=== PATIENT | male | born 1950 | race Caucasian/White ===

== ENCOUNTER 2016-12-05 14:42 | Observation (INO) ==
[2016-12-05] MEDS ORDERED: Ondansetron 4 MG/2 ML VIAL IVP ONE ×2 (15:52→16:53)
[2016-12-05] MEDS ORDERED: *HR* HYDROmorphone (PF) 1 MG/ML SYRINGE IVP ONE (15:52)
[2016-12-05 16:36] LABS: Prothrombin Time 11.2 Seconds (9.4-12.1)
[2016-12-05 16:37] LABS: Basophils % 0.3 %; Eosinophils % 0.2 %; Hematocrit 44.9 % (37.5-50.1); Immature Granulocytes % 0.5 % (0-4); Lymphocytes # 1.1 K/mcL (0.6-4.6); Lymphocytes % 9.6 %; Mean Corpuscular HGB Conc 33.4 g/dL (31.6-35.5); Mean Corpuscular Hemoglobin 30.5 pg (28.0-33.3); Mean Corpuscular Volume 91.4 fL (83.0-100.0); Mean Platelet Volume 9.6 fL (9.4-12.4); Monocytes # 0.6 K/mcL (0.0-1.3); Monocytes % 5.2 %; Platelet Count 204 K/mcL (140-400); Red Blood Count 4.91 M/mcL (4.19-5.50); Red Cell Distribution Width 12.7 % (11.5-14.5); Segmented Neutrophils % 84.2 %
[2016-12-05 16:39] LABS: Activated Partial Thrombo Time 27.6 Seconds (26.0-36.0)
[2016-12-05 16:45] LABS: BUN/Creatinine Ratio 10 (6-26); Blood Urea Nitrogen 8 mg/dL (8-26); Calcium 9.2 mg/dL (8.6-10.8); Carbon Dioxide 26 mEq/L (19-29); Chloride 93 mEq/L (98-109); Glucose 205 mg/dL (70-99); Osmolality,Calculated 270 (280-300); Potassium 4.5 mEq/L (3.5-4.5); Sodium 128 mEq/L (136-145); eGFR For African Americans > 60 (> 60); eGFR For Non-African Americans > 60 (> 60)
[2016-12-05] MEDS ORDERED: 0.9 % Sodium Chloride 1,000 ML IVC ONE (16:55)
--- NOTE | 2016-12-05 17:59 | Emergency Department Note ---
Disposition Clinical Impression: Head ache, Generalized weakness, Malaise and fatigue, Nausea, Hyponatremia Disposition: Admitted As Inpatient Condition: Fair General Adult HPI - General Chief complaint: ED Dizziness Stated complaint: nausea, FERNANDEZ Time Seen by Provider: 12/05/16 15:08 Source: patient, family Mode of arrival: ambulatory Limitations: no limitations Nursing Notes Reviewed: Yes Vital Signs Reviewed: Yes - History of Present Illness HPI Narrative: Patient is a 66-year-old white male who presents to the emergency room today complaining of a gradual in onset right frontal headache that began late last evening. Patient reports to me that he was just sitting outside enjoying the nice weather and started to have just a dull gradual ache in his right forehead. Patient states that he had been feeling fine during the day prior to the onset of a headache. Patient said he is not someone who typically gets headaches so he took some Motrin and the pain was stable but did not worsen throughout the evening. Patient denies any other associated symptoms with the pain, no further diplopia or visual changes, no slurred speech no focal deficits , no neck pain, no chest pain shortness of breath, no nausea vomiting, no diaphoresis. Patient stated throughout the night he had trouble sleeping and every time he laid on his right side seems to exacerbate his right frontal headache pain. Patient states he rolled over and laid on his left side pain would subside and he would be able to fall sleep and rest comfortably. Patient denies any history of falls or trauma. Patient states upon waking this morning he was still having a right frontal headache, throbbing in nature, 6 out of 10 in severity and took 2 baby aspirin this morning. Patient states the pain began make him feel nauseated but patient denies any vomiting and no other associated symptoms. Headache was not preceded by any upper respiratory symptoms no sinusitis no sore throat or cough. Patient denies any other associated symptoms. Patient began to complain of nausea and not feeling well his brought him in here for evaluation. Pain Scale: 6 - Related Data Home Medications Medication Instructions Recorded Confirmed Aclidinium [place] [Tudorza 400 mcg IH BID 12/05/16 12/05/16 Pressair] Albuterol Sulfate [Albuterol 2 puff IH Q4H PRN 12/05/16 12/05/16 Inhaler] Aspirin Enteric Coated [Aspirin EC] 81 mg PO DAILY 12/05/16 12/05/16 Fluticasone/Salmeterol [Advair Hfa 2 puff IH BID 12/05/16 12/05/16 115-21 Mcg Inhaler] Gabapentin [Neurontin] 300 mg PO HS 12/05/16 12/05/16 Metformin HCl [Glucophage] 1,000 mg PO BID 12/05/16 12/05/16 Multivitamin [Multi-Day Vitamins] 1 each PO DAILY 12/05/16 12/05/16 Simvastatin [Zocor] 20 mg PO HS 12/05/16 12/05/16 Allergies Allergy/AdvReac Type Severity Reaction Status Date / Time acetaminophen [From Percocet] Allergy See Verified 12/05/16 14:51 Comments Oxycodone [From Percocet] Allergy See Verified 12/05/16 14:51 Comments All systems ED: reviewed and negative except as stated. Constitutional: Reports: as per HPI. Denies: fever, chills, weakness Eyes: Reports: as per HPI. Denies: vision change ENT ED: Reports: as per HPI. Denies: ear pain, congestion, dysphagia Cardiovascular: Reports: as per HPI. Denies: chest pain, palpitations, dyspnea on exertion, syncope Respiratory: Reports: as per HPI. Denies: cough, dyspnea Gastrointestinal: Reports: as per HPI, nausea. Denies: abdominal pain, vomiting , diarrhea Genitourinary: Reports: as per HPI. Denies: urgency, dysuria Musculoskeletal: Reports: as per HPI, neck pain. Denies: back pain, arthralgia , myalgia Integumentary: Reports: as per HPI. Denies: rash Neurological: Reports: as per HPI, headache. Denies: weakness, numbness, paresthesias, confusion, abnormal gait, vertigo Psychiatric: Reports: as per HPI. Denies: anxiety, depression Endocrine: Reports: as per HPI. Denies: fatigue Hematological/Lymphatic: Reports: as per HPI. Denies: easy bleeding, easy bruising Allergic/Immunologic: Reports: as per HPI Past Medical History - Past Medical History Medical history: Reports: COPD, diabetes, hyperlipidemia, hypertension Psychiatric history: Reports: no psych history - Social History Smoking Status: Current every day smoker Alcohol use: Reports: occasionally Drug use: Reports: none Physical Exam - General Limitations: no limitations General appearance: alert, in no apparent distress - Head Head exam: atraumatic, normocephalic, normal inspection - Eye Eye exam: Present: normal appearance, PERRL, EOMI, other (No photophobia) - ENT ENT exam: normal exam, normal oropharynx, mucous membranes moist, TM's normal bilaterally, other (Mastoids nontender to palpation no erythema) - Neck Neck exam: Present: normal inspection, full ROM. Absent: meningismus, lymphadenopathy - Chest Chest inspection: Present: normal inspection, symmetric chest wall rise. Absent : tenderness - Respiratory Respiratory exam: Present: normal lung sounds bilaterally. Absent: respiratory distress, wheezes - Cardiovascular Cardiovascular exam: Present: regular rate, normal rhythm, normal heart sounds - Abdominal Exam Abdominal exam: Present: soft, Non-Tender, normal bowel sounds - Extremities Exam Extremities exam: Present: normal inspection, normal capillary refill. Absent: tenderness, pedal edema - Back Exam Back exam: Present: normal inspection, full ROM - Neurological Exam Neurological exam: Present: alert, oriented X3, CN II-XII intact, normal gait, reflexes normal, other (No focal neurologic deficits appreciated on exam). Absent: motor sensory deficit - Psychiatric Psychiatric exam: Present: normal affect, normal mood Course Vital Signs Temperature 98.8 F 12/05/16 14:47 Pulse Rate 76 12/05/16 14:47 Respiratory Rate 18 12/05/16 14:47 Blood Pressure 139/78 12/05/16 14:47 O2 Sat by Pulse Oximetry 90 12/05/16 14:47 Temperature 98.4 F 12/06/16 11:08 Pulse Rate 68 12/06/16 11:08 Respiratory Rate 18 12/06/16 11:08 Blood Pressure 131/66 12/06/16 11:08 O2 Sat by Pulse Oximetry 91 12/06/16 11:08 Oxygen Delivery Oxygen Delivery Nasal Cannula Medical Decision Making - [facility] Narrative Medical decision making narrative: Pt is a 66 yo wm, who presented to the ER with c/o R frontal FERNANDEZ, nausea, and "just not feeling well". Pt with no visual changes, no photophobia, no temporal TTP, and no focal neuro deficits. Pt with no prior hx of FERNANDEZ's. Pt with stable VS in ED. Pt with grad in onset FERNANDEZ, not worst FERNANDEZ of his life, mild and throbbing to R forehead. No assocd URI/ST/cough/sinus pain or press. No vomiting /diarrhea. No abd pain/cramping. No F/C. Pt appears tired but in NAD. Pt on monitor/pulse ox, EKG performed which was wnl, PCXR, and CT head performed which was wnl, labs show mild hyperglycemia without acidosis, and hyponatremia which is new for this pt. Pt receive single dose IV meds for FERNANDEZ, which resolved following medical voucher clerk, and remained pain free for remainder of ED course. Hydrated pt with IVF, which also helped him to "feel better". Stable neruo exam over time. Mild elevation in ESR , but not to the level typical for vasculitis. Pt with no TTP at R temporal area and no visual changes. Pt afebrile with no ill contacts at home. Pt with failure to thrive, gen weakness, dec PO intake due to ongoing nausea, which we treated multiple times in ED. Also newly found hyponatremia. Admitted pt for further evaluation and treatment, pt accepted by hospitalist. - Medical Records Medical records reviewed: Yes I reviewed the patient's medical records. - Lab Data Lab results reviewed: Yes I reviewed the patient's lab results. Result diagrams: 12/06/16 06:21 12/06/16 06:21 Lab Results 12/05/16 12/05/16 12/05/16 Range/Units 16:09 16:09 16:09 WBC 11.8 H (4.3-11.1) K/mcL RBC 4.91 (4.19-5.50) M/mcL Hgb 15.0 (12.9-16.9) g/dL Hct 44.9 (37.5-50.1) % MCV 91.4 (83.0-100.0) fL MCH 30.5 (28.0-33.3) pg MCHC 33.4 (31.6-35.5) g/dL RDW 12.7 (11.5-14.5) % Plt Count 204 (140-400) K/mcL MPV 9.6 (9.4-12.4) fL Immature Gran % 0.5 (0-4) % Seg Neutrophils % 84.2 % Lymphocytes % 9.6 % Monocytes % 5.2 % Eosinophils % 0.2 % Basophils % 0.3 % Neutrophils # 10.0 H (1.6-8.9) K/mcL Lymphocytes # 1.1 (0.6-4.6) K/mcL Monocytes # 0.6 (0.0-1.3) K/mcL Eosinophils # 0.0 (0.0-0.6) K/mcL Basophils # 0.0 (0.0-0.2) K/mcL ESR (0-10) mm/hr PT 11.2 (9.4-12.1) Seconds INR 1.0 APTT 27.6 (26.0-36.0) Seconds Sodium 128 L (136-145) mEq/L Potassium 4.5 (3.5-4.5) mEq/L Chloride 93 L (98-109) mEq/L Carbon Dioxide 26 (19-29) mEq/L BUN 8 (8-26) mg/dL Creatinine 0.81 (0.72-1.25) mg/dL Est GFR ( Amer) > 60 (> 60) Est GFR (Non-Af Amer) > 60 (> 60) BUN/Creatinine Ratio 10 (6-26) Glucose 205 H (70-99) mg/dL Calculated Osmolality 270 L (280-300) Calcium 9.2 (8.6-10.8) mg/dL Total Bilirubin 0.5 (0.2-1.2) mg/dL Direct Bilirubin 0.2 (0.0-0.5) mg/dL Indirect Bilirubin 0.3 (0.0-1.2) mg/dL AST 18 (5-34) Units/L ALT 24 (0-55) Units/L Alkaline Phosphatase 85 (38-126) Units/L Troponin I (0-0.03) ng/mL Serum Total Protein 7.7 (6.0-8.3) g/dL Albumin 3.5 (3.5-5.0) g/dL Globulin 4.2 H (2.4-3.5) g/dL Albumin/Globulin Ratio 0.8 L (1.1-2.2) 12/05/16 12/05/16 Range/Units 16:09 16:09 WBC (4.3-11.1) K/mcL RBC (4.19-5.50) M/mcL Hgb (12.9-16.9) g/dL Hct (37.5-50.1) % MCV (83.0-100.0) fL MCH (28.0-33.3) pg MCHC (31.6-35.5) g/dL RDW (11.5-14.5) % Plt Count (140-400) K/mcL MPV (9.4-12.4) fL Immature Gran % (0-4) % Seg Neutrophils % % Lymphocytes % % Monocytes % % Eosinophils % % Basophils % % Neutrophils # (1.6-8.9) K/mcL Lymphocytes # (0.6-4.6) K/mcL Monocytes # (0.0-1.3) K/mcL Eosinophils # (0.0-0.6) K/mcL Basophils # (0.0-0.2) K/mcL ESR 45 H (0-10) mm/hr PT (9.4-12.1) Seconds INR APTT (26.0-36.0) Seconds Sodium (136-145) mEq/L Potassium (3.5-4.5) mEq/L Chloride (98-109) mEq/L Carbon Dioxide (19-29) mEq/L BUN (8-26) mg/dL Creatinine (0.72-1.25) mg/dL Est GFR ( Amer) (> 60) Est GFR (Non-Af Amer) (> 60) BUN/Creatinine Ratio (6-26) Glucose (70-99) mg/dL Calculated Osmolality (280-300) Calcium (8.6-10.8) mg/dL Total Bilirubin (0.2-1.2) mg/dL Direct Bilirubin (0.0-0.5) mg/dL Indirect Bilirubin (0.0-1.2) mg/dL AST (5-34) Units/L ALT (0-55) Units/L Alkaline Phosphatase (38-126) Units/L Troponin I 0.00 (0-0.03) ng/mL Serum Total Protein (6.0-8.3) g/dL Albumin (3.5-5.0) g/dL Globulin (2.4-3.5) g/dL Albumin/Globulin Ratio (1.1-2.2) - Radiology Data Radiology results reviewed: Yes I reviewed the patient's radiology results. - EKG Data EKG #1 EKG results narrative: EKG was interpreted by myself without benefit of for cardiology interpretation showing a normal sinus rhythm at [address] or T-wave changes are appreciated this is unchanged from prior EKG from 11/01/2011.
[2016-12-05 18:43] LABS: Alanine Aminotransferase 24 Units/L (0-55); Albumin 3.5 g/dL (3.5-5.0); Albumin/Globulin Ratio 0.8 (1.1-2.2); Alkaline Phosphatase 85 Units/L (38-126); Aspartate Amino Transferase 18 Units/L (5-34); Bilirubin,Direct 0.2 mg/dL (0.0-0.5); Bilirubin,Indirect 0.3 mg/dL (0.0-1.2); Bilirubin,Total 0.5 mg/dL (0.2-1.2); Globulin 4.2 g/dL (2.4-3.5); Total Protein 7.7 g/dL (6.0-8.3)
[2016-12-05] MEDS ORDERED: Naloxone 0.4 MG/ML INJ IVP PRN (21:20)
[2016-12-05] MEDS ORDERED: *HR* Promethazine 25 MG/ML VIAL IVP PRN (21:20)
[2016-12-05] MEDS ORDERED: *HR* Dextrose 50 % in Water (Syg) 50 ML SYRINGE IVP PRN (21:20)
[2016-12-05] MEDS ORDERED: D5% in Water 1,000 ML IVC PRN (21:20)
[2016-12-05] MEDS ORDERED: Dextrose Gel 15 GM PO PRN ×2 (21:20)
[2016-12-05] MEDS ORDERED: *HR* LORazepam 2 MG/ML VIAL IVP PRN ×3 (21:48)
[2016-12-05] MEDS: Ipratropium/Albuterol Neb 3 ML IH PRN (21:52)
[2016-12-05] MEDS: Budesonide/Formoterol 160/4.5 MDI IH SCH (21:52)
[2016-12-05] MEDS ORDERED: Acetaminophen 325 MG TABLET PO PRN (22:06)
[2016-12-05] MEDS ORDERED: Acetaminophen/Butalbital/CaffeineTABLET PO PRN (22:06)
[2016-12-05] MEDS ORDERED: 0.9 % Sodium Chloride 1,000 ML IVC SCH (22:15)
--- NOTE | 2016-12-05 22:15 | Internal Med History&Physical ---
Date of Encounter: 12/05/16 Time of Encounter: 22:07 Assessment and Plan (1) Head ache Current visit: Yes Status: Acute Tension type versus migraine. No concerning symptoms including rigidity, fever , focal neurologic findings. Head CT was negative. Will fluid hydrate and treat with acetaminophen and Fioricet. Patient may benefit from an neurology outpatient follow-up. Qualifiers: Headache type: unspecified Headache chronicity pattern: acute headache Intractability: not intractable Qualified Code(s): R51 - Headache (2) Hyponatremia Current visit: Yes Status: Acute Mild, chronic. Sodium was 128 on presentation, records reviewed shows that his baseline appears to be in the low 130s. No acute neurologic deficits. Likely related to chronic alcohol use. Will fluid hydrate and recheck BMP in the morning. (3) COPD (chronic obstructive pulmonary disease) Current visit: Yes Status: Acute Stable. No evidence of exacerbation. DuoNeb every 4 when necessary. Symbicort. Qualifiers: COPD type: unspecified COPD Qualified Code(s): J44.9 - Chronic obstructive pulmonary disease, unspecified (4) Type 2 diabetes mellitus Current visit: Yes Status: Acute Blood sugar elevated on presentation. We will hold metformin. We will institute sliding scale insulin. Continue to monitor. Patient continues to smoke. Discussed smoking cessation for 10 minutes with the patient. He is not interested in quitting at this time but will try to cut back. Will order nicotine patch. Qualifiers: Diabetes mellitus complication status: with hyperglycemia Diabetes mellitus penitentiary insulin use: without penitentiary use Qualified Code(s): E11.65 - Type 2 diabetes mellitus with hyperglycemia (5) Chronic alcohol use Current visit: Yes Status: Acute Patient reports 6-12 beers daily. He reports drinking 12 beers yesterday and one beer this morning. Patient has never had withdrawal symptoms. Will place on CIWA protocol. We will give thiamine and folate. Discussed alcohol cessation with the patient he states he will try to cut back. (6) DVT prophylaxis Current visit: Yes Status: Acute EPCDs Internal Medicine - H&P: HPI Chief complaint: Headache Admitted From: Emergency Dept Plans for Post Hospital Care: Home History of present illness: Mr. Escoto is a 66 year old male with history of COPD, DM2 presents with a headache. Patient states this started last night suddenly. He describes it as a pressure behind his right eye that wraps around the right side of his head. He states he has never had anything like this before. He reports associated nausea. He states he took Aleve last night and aspirin today that did not help. He did say he had a temperature of 99.2 today as well. He also reports shortness of breath that is at baseline and unchanged from his normal shortness of breath related to COPD. He denies chills, vomiting, diarrhea, chest pain, dysuria, weakness, photophobia, phonophobia. Past Med Surg Social Fam HX - Past Medical History Medical history: COPD, diabetes, hyperlipidemia, hypertension Psychiatric history: no psych history - Past Surgical History Surgical History: cataract - Social History Smoking Status: Current every day smoker Packs per day: 2 Smokeless Tobacco Status: No Alcohol use: occasionally Drug use: none - Family History Mother Living Status: Age at : 92 Cause of : cancer Father Living Status: Age at : 68 Cause of : [place] [facility] - H&P: Meds Aclidinium [place] [Tudorza Pressair] 400 mcg IH BID 12/05/16 [History] Albuterol Sulfate [Albuterol Inhaler] 2 puff IH Q4H PRN 12/05/16 [History] Aspirin Enteric Coated [Aspirin EC] 81 mg PO DAILY 12/05/16 [History] Fluticasone/Salmeterol [Advair Hfa 115-21 Mcg Inhaler] 2 puff IH BID 12/05/16 [ History] Gabapentin [Neurontin] 300 mg PO HS 12/05/16 [History] Metformin HCl [Glucophage] 1,000 mg PO BID 12/05/16 [History] Multivitamin [Multi-Day Vitamins] 1 each PO DAILY 12/05/16 [History] Simvastatin [Zocor] 20 mg PO HS 12/05/16 [History] Allergies acetaminophen [From Percocet] Allergy (Verified 12/05/16 14:51) See Comments Oxycodone [From Percocet] Allergy (Verified 12/05/16 14:51) See Comments All Systems PM: A 10-system review of systems was performed and is negative for pertinent findings except as documented above in the HPI. - Constitutional Constitutional: fever(s), no chills, no weakness - EENT Eyes: no blurry vision, no change in vision, no diplopia, no loss of vision Ears: no decreased hearing, no ear pain Nose, mouth and throat: no sinus pain, no sinus pressure, no sore throat - Cardiovascular Cardiovascular ROS IM: dyspnea, no chest pain, no dyspnea on exertion, no edema , no lightheadedness, no syncope - Respiratory Respiratory: dyspnea, no cough, no hemoptysis, no dyspnea on exertion, no wheezing, no chest congestion, no excessive phlegm production, no change in phlegm color - Gastrointestinal Gastrointestinal: nausea, no abdominal pain, no diarrhea, no hematemesis, no hematochezia, no melena, no vomiting - Genitourinary Genitourinary ROS male: no dysuria, no hematuria - Musculoskeletal Musculoskeletal ROS IM: no neck pain, no numbness, no tingling - Integumentary Integumentary IM: no new lesions - Neurological Neurological ROS: headache(s), no abnormal gait, no abnormal hearing, no abnormal speech, no confusion, no disequilibrium, no dizziness, no focal weakness, no frequent falls, no numbness, no tingling, no weakness - Psychiatric Psychiatric: no anxiety, no depression - Endocrine Endocrine IM: no polydipsia, no polyuria - Hematologic/Lymphatic Hematologic/Lymphatic: no easy bleeding, no easy bruising - Constitutional Vitals: Temp Pulse Resp BP Pulse Ox 98.7 F 69 16 130/70 98 12/05/16 20:13 12/05/16 20:13 12/05/16 21:52 12/05/16 20:13 12/05/16 21:52 General appearance: Present: A&O X 3, pleasant, no acute distress Exam: Patient was sitting up in chair watching TV while in the room. - Head Head exam: Present: atraumatic, normal inspection, normocephalic - Eye Eye exam: Present: EOMI, PERRL - ENT ENT exam: Present: mucous membranes moist - Neck Neck exam general surgery: Present: full ROM, normal inspection, supple, trachea midline. Absent: tenderness, nuchal rigidity - Respiratory Respiratory exam: Absent: rales, respiratory distress, rhonchi, wheezes ( Occasional scattered), tachypnea - Cardiovascular Cardiovascular exam: Present: RRR. Absent: gallop, rubs, systolic murmur - GI/Abdominal GI/Abdominal exam: Present: normal bowel sounds, soft. Absent: distended, tenderness - Extremities Exam Extremities exam: Present: warm. Absent: pedal edema, tenderness - Neurological Exam Neurological exam: Present: alert, CN II-XII intact, oriented X3, reflexes normal, no focal deficits, strengths equal and symetr throughout. Absent: motor sensory deficit, facial droop, speech deficit - Psychiatric Psychiatric exam: Present: normal affect, normal mood - Skin Skin exam: Present: dry, intact, warm Internal Med - H&P Results - Labs CBC & Chem 7: 12/05/16 16:09 12/05/16 16:09
--- NOTE | 2016-12-05 23:05 | Event Note ---
Date of Encounter: 12/05/16 Time of Encounter: 22:30 66 year old male with h/o- HTN, DM, HL, COPD, chronic alcohol and tobacco abuse , was admitted with right-sided headache, sudden onset, moderate intensity. Patient evaluated along with resident and agree with resident note's history, assessment and plan. Patient is alert and oriented*3; no focal neurological deficits noted; chest- S1 , S2 heard; lungs are clear to auscultation B/L; Labs reviewed- very mild leukocytosis, serum Na- 128; Right hemicranial headache- atypical migraine, probable; will give PRN Tylenol and Fioricet for pain control; currently improved pain; CT head shows no acute abnormality; outpatient Neurology f/up if pain is recurrent; no indication for lumbar puncture/MRI brain at this time; Continue management of other comorbidities per Resident's note; Hyponatremia- possibly hypovolemic due to dehydration; baseline serum sodium noted to be low 130s; will give IV NS and monitor serum sodium;
[2016-12-06 06:46] LABS: Basophils % 0.2 %; Eosinophils # 0.1 K/mcL (0.0-0.6); Eosinophils % 0.9 %; Hematocrit 44.7 % (37.5-50.1); Immature Granulocytes % 0.5 % (0-4); Lymphocytes # 2.3 K/mcL (0.6-4.6); Lymphocytes % 23.6 %; Mean Corpuscular HGB Conc 33.6 g/dL (31.6-35.5); Mean Corpuscular Volume 92.4 fL (83.0-100.0); Mean Platelet Volume 9.3 fL (9.4-12.4); Monocytes # 0.9 K/mcL (0.0-1.3); Monocytes % 9.4 %; Neutrophils # 6.5 K/mcL (1.6-8.9); Platelet Count 184 K/mcL (140-400); Red Blood Count 4.84 M/mcL (4.19-5.50); Red Cell Distribution Width 12.9 % (11.5-14.5); Segmented Neutrophils % 65.4 %
[2016-12-06 07:23] LABS: BUN/Creatinine Ratio 9 (6-26); Blood Urea Nitrogen 7 mg/dL (8-26); Calcium 9.2 mg/dL (8.6-10.8); Carbon Dioxide 28 mEq/L (19-29); Chloride 100 mEq/L (98-109); Glucose 106 mg/dL (70-99); Osmolality,Calculated 278 (280-300); Potassium 4.4 mEq/L (3.5-4.5); Sodium 135 mEq/L (136-145); eGFR For African Americans > 60 (> 60); eGFR For Non-African Americans > 60 (> 60)
[2016-12-06] MEDS: Budesonide/Formoterol 160/4.5 MDI IH SCH (07:34)
[2016-12-06] MEDS: Ipratropium/Albuterol Neb 3 ML IH PRN (07:34)
[2016-12-06] MEDS: Insulin LISPRO 300 UNITS/3 ML VIAL SQ SCH ×2 (08:21→12:57)
[2016-12-06] MEDS ORDERED: Nicotine 21 MG PATCH.TD24 TD SCH (09:00)
[2016-12-06] MEDS ORDERED: Aspirin Enteric Coated 81 MG Tablet PO SCH (09:00)
[2016-12-06] MEDS ORDERED: Folic Acid 1 MG TABLET PO SCH (09:00)
[2016-12-06] MEDS ORDERED: Thiamine (B-1) 100 MG TABLET PO SCH (09:00)
[2016-12-06 11:09] VITALS: BP 131/66
--- NOTE | 2016-12-06 12:43 | Discharge Summary ---
Date of Encounter: 12/06/16 Time of Encounter: 10:00 - Discharge Diagnosis (1) Head ache Priority: Primary Status: Resolved Comments: Patient denied headache on day of discharge. Follow-up outpatient. (2) Heavy alcohol consumption Priority: Secondary Status: Chronic Comments: Patient stating he drinks "all day every day" and he refers to himself as an alcoholic. He states he drinks between 6 and 12 beers a day but is never gone through withdrawal. He states that today he was admitted was the first day he has gone without alcohol since he can remember. He was counseled and does not have a desire to decrease or stop drinking at this time. (3) Heavy tobacco smoker Priority: Secondary Status: Chronic Comments: Patient smokes 2 packs per day. He declines any counseling. (4) Hyponatremia Priority: Secondary Status: Chronic Comments: Acute on chronic. Improved with IV fluids. Also associated with hyperosmolality likely secondary to heavy alcohol abuse and poor diet. Patient was counseled but stated he was not getting change anything that he eats or drinks. (5) COPD (chronic obstructive pulmonary disease) Priority: Secondary Status: Chronic Comments: No acute exacerbation. Patient denied shortness of breath above his norm during this admission. Qualifiers: COPD type: unspecified COPD Qualified Code(s): J44.9 - Chronic obstructive pulmonary disease, unspecified (6) Type 2 diabetes mellitus Priority: Secondary Status: Chronic Comments: Relatively well-controlled at home with an A1c of 6.8%. Continue follow up outpatient Qualifiers: Diabetes mellitus complication status: with hyperglycemia Diabetes mellitus bed bug exterminator insulin use: without bed bug exterminator use Qualified Code(s): E11.65 - Type 2 diabetes mellitus with hyperglycemia (7) DVT prophylaxis Priority: Primary Status: Acute Comments: EPCD's ordered; Observation patient. Up ad wyatt. - Discharge Medications Home Medications: Aclidinium Spreckels [Tudorza Pressair] 400 mcg IH BID 12/05/16 [History] Albuterol Sulfate [Albuterol Inhaler] 2 puff IH Q4H PRN 12/05/16 [History] Aspirin Enteric Coated [Aspirin EC] 81 mg PO DAILY 12/05/16 [History] Fluticasone/Salmeterol [Advair Hfa 115-21 Mcg Inhaler] 2 puff IH BID 12/05/16 [ History] Gabapentin [Neurontin] 300 mg PO HS 12/05/16 [History] Metformin HCl [Glucophage] 1,000 mg PO BID 12/05/16 [History] Multivitamin [Multi-Day Vitamins] 1 each PO DAILY 12/05/16 [History] Simvastatin [Zocor] 20 mg PO HS 12/05/16 [History] Allergies/Adverse Reactions: Allergies acetaminophen [From Percocet] Allergy (Verified 12/05/16 14:51) See Comments Oxycodone [From Percocet] Allergy (Verified 12/05/16 14:51) See Comments Date of admission: 12/05/16 18:55 Primary care physician: Vivienne Hernandez MD Discharging clinician: Emeli Valencia Anticipated date of discharge: 12/06/16 - Patient Status Disposition: Home, Self-Care Condition: Fair Functional capacity at discharge: independent ambulation Overall status at discharge: patient is back to baseline - Discharge Instructions Follow Up With: Vivienne Hernandez MD [Primary Care Provider] - 12/13/16 2:50 pm Additional Instructions: Follow-up with primary care provider as scheduled - Diet and Activity Activity: increase activity as tolerated Diet: diabetic diet, low fat, low cholesterol Hospital course: Mr. Escoto is a 66 year old male with past medical history of COPD, diabetes, heavy tobacco, heavy alcohol abuse. Patient presented to the emergency department chief complaint of headache that started on the night prior to presentation and had an acute onset. Patient described it as pressure behind his right eye that wrapped around the right side of his head. He states he has never had a headache like this before. He did endorse nausea. He states he tried Aleve and aspirin at home without relief. Patient denies shortness of breath above his norm. Workup in the emergency department unremarkable other than hyponatremia. He was admitted to the hospitalist service for further evaluation and management. Head CT negative. Chest x-ray negative. Patient was admitted overnight for observation and did not require any other pain medications. His headache resolved while admitted. He did not have any gait difficulties or vision changes. His hyponatremia resolved and was associated with hyperosmolality likely secondary to poor dietary intake with heavy alcohol consumption. Attempted to automobile club travel counselor the patient on better dietary choices however he refused stating he was not going to change his diet, smoking, or drinking. He was counseled on his heavy tobacco abuse which is 2 packs per day but he declined the desire to stop smoking. He was also counseled on heavy alcohol usage which she states is anywhere from 6-12 beers a day. He states he does not have any desire to stop smoking or drinking at this time. No signs of withdrawal during this admission. He was discharged home in stable condition with close outpatient follow-up recommended. ITS Impressions Head CT 12/05/16 15:49 IMPRESSION: No acute intracranial abnormality. Chronic microvascular ischemic changes. D/ / 12/05/2016 16:56:11 Jerry Bean MD / [email or web address] Interpreting Provider: Jerry Bean MD Chest X-Ray 12/05/16 17:40 IMPRESSION: No acute cardiopulmonary abnormality. D/ / Vern Orellana MD / Vern Orellana MD Interpreting Provider: Vern Orellana MD - Time Spent with Patient Total time spent providing and/or coordinating discharge services: - Constitutional Vitals: Temp Pulse Resp BP Pulse Ox 98.4 F 68 18 131/66 91 12/06/16 11:08 12/06/16 11:08 12/06/16 11:08 12/06/16 11:08 12/06/16 11:08 General appearance: Present: A&O X 3, pleasant, no acute distress, answers questions appropriately - Head Head exam: Present: atraumatic, normocephalic - Eye Eye exam: Present: PERRL, conjuntiva pink, sclera anicteric Pupils: Present: PERRL - Neck Neck exam general surgery: Present: supple, trachea midline. Absent: lymphadenopathy - Respiratory Respiratory exam: Present: decreased breath sounds. Absent: accessory muscle use, rales, respiratory distress, rhonchi, wheezes - Cardiovascular Cardiovascular exam: Present: RRR, +S1, +S2. Absent: diastolic murmur, gallop, rubs, systolic murmur - GI/Abdominal GI/Abdominal exam: Present: distended, normal bowel sounds, soft, no peritoneal signs. Absent: tenderness - Extremities Exam Extremities exam: Present: warm, radial pulses palpable and symetrical. Absent : calf tenderness, cyanotic, pedal edema - Neurological Exam Neurological exam: Present: alert, CN II-XII intact, normal gait, oriented X3, no focal deficits, strengths equal and symetr throughout. Absent: pronater drift, facial droop, speech deficit - Skin Skin exam: Present: dry, intact, normal color, warm
--- NOTE | 2016-12-06 13:53 | Electrocardiograph Report ---
[place] [id number] Test Date: 2016-12-05 Pat Name: Chetan Dispatcher Relay Department: 103 Room: 3B Gender: M Training And Development Professional: KYREE : [id number] Requested By: Bita Hannah Order Number: [id number] Reading MD: Jose Carlin MD Measurements Intervals [place] Rate: 71 P: 50 LA: 199 QRS: 12 QRSD: 98 T: 66 QT: 367 QTc: 389 Interpretive Statements SINUS RHYTHM Electronically Signed On 12-06-2016 13:52:14 EDT by Jose Carlin MD
[2016-12-06] MEDS ORDERED: Gabapentin 300 MG CAPSULE PO SCH (21:00)
[2016-12-06] MEDS ORDERED: Insulin LISPRO 300 UNITS/3 ML VIAL SQ SCH (21:00)
== END 2016-12-06 13:15 | disposition home or self-care (01) ==
LOC: 3BNU 14:42 → EMEROO 14:42 → 3BNU 19:40
PROVIDERS: ADMIT Nurse Practitioner Family; ATTEND Nurse Practitioner Family

== ENCOUNTER 2021-02-02 17:28 | Observation (INO) ==
[2021-02-02 18:10] LABS: Basophils # 0.1 K/mcL (0.0-0.2); Basophils % 0.7 %; Eosinophils % 0.3 %; Hematocrit 39.2 % (37.5-50.1); Hemoglobin 12.2 g/dL (12.9-16.9); Immature Granulocytes % 0.3 % (0-4); Lymphocytes # 2.2 K/mcL (0.6-4.6); Lymphocytes % 29.7 %; Mean Corpuscular HGB Conc 31.1 g/dL (31.6-35.5); Mean Corpuscular Hemoglobin 29.1 pg (28.0-33.3); Mean Corpuscular Volume 93.6 fL (83.0-100.0); Mean Platelet Volume 10.4 fL (9.4-12.4); Monocytes # 0.6 K/mcL (0.0-1.3); Monocytes % 7.6 %; Neutrophils # 4.4 K/mcL (1.6-8.9); Platelet Count 180 K/mcL (140-400); Red Blood Count 4.19 M/mcL (4.19-5.50); Red Cell Distribution Width 13.4 % (11.5-14.5); Segmented Neutrophils % 61.4 %; White Blood Count 7.2 K/mcL (4.3-11.1)
[2021-02-02 18:20] LABS: Activated Partial Thrombo Time 27.3 Seconds (26.0-36.0)
[2021-02-02 18:33] LABS: Alanine Aminotransferase 26 Units/L (7-52); Albumin 3.8 g/dL (3.5-5.7); Albumin/Globulin Ratio 0.9 (1.1-2.2); Alkaline Phosphatase 72 Units/L (34-104); Aspartate Amino Transferase 18 Units/L (13-39); BUN/Creatinine Ratio 20 (6-26); Bilirubin,Indirect 0.3 mg/dL (0.0-1.0); Bilirubin,Total 0.3 mg/dL (0.3-1.0); Blood Urea Nitrogen 15 mg/dL (8-23); Calcium 9.5 mg/dL (8.6-10.3); Carbon Dioxide 27 mEq/L (23-29); Chloride 97 mEq/L (98-107); Globulin 4.1 g/dL (2.4-3.5); Glucose 409 mg/dL (70-105); Osmolality,Calculated 290 (280-300); Potassium 4.5 mEq/L (3.5-5.1); Sodium 131 mEq/L (136-145); Total Protein 7.9 g/dL (6.4-8.9); Troponin I < 0.03 ng/mL (< 0.04); eGFR For African Americans > 60 (> 60); eGFR For Non-African Americans > 60 (> 60)
[2021-02-02] MEDS ORDERED: 0.9 % Sodium Chloride 1,000 ML IVC ONE (18:59)
[2021-02-02] MEDS ORDERED: Aspirin 81 MG TAB.CHEW PO ONE (19:05)
[2021-02-02] MEDS ORDERED: Perflutren Lipid Microsphere 1.3 ML in 0.9 % Sodium Chloride 8.7 ML IVP PRN (19:48)
[2021-02-02] MEDS ORDERED: *HR* Dextrose 50 % in Water (Vial) 50 ML VIAL IVP PRN (20:00)
[2021-02-02] MEDS ORDERED: Dextrose Gel 15 GM/37.5 ML TUBE PO PRN ×2 (20:00)
[2021-02-02] MEDS ORDERED: D5% in Water 1,000 ML IVC PRN (20:00)
[2021-02-02] MEDS ORDERED: Insulin DETEMIR 100 UNIT/ML X5UNITS SUBQ SCH (21:00)
[2021-02-03] MEDS: Insulin LISPRO 300 UNITS/3 ML VIAL SUBQ SCH ×4 (01:25→17:33)
[2021-02-03 06:13] LABS: Hematocrit 38.9 % (37.5-50.1); Hemoglobin 12.2 g/dL (12.9-16.9); Mean Corpuscular HGB Conc 31.4 g/dL (31.6-35.5); Mean Corpuscular Volume 92.6 fL (83.0-100.0); Mean Platelet Volume 10.1 fL (9.4-12.4); Platelet Count 163 K/mcL (140-400); Red Cell Distribution Width 13.2 % (11.5-14.5); White Blood Count 6.1 K/mcL (4.3-11.1)
[2021-02-03 07:04] LABS: Alanine Aminotransferase 26 Units/L (7-52); Albumin 3.5 g/dL (3.5-5.7); Albumin/Globulin Ratio 0.9 (1.1-2.2); Alkaline Phosphatase 72 Units/L (34-104); Aspartate Amino Transferase 20 Units/L (13-39); BUN/Creatinine Ratio 21 (6-26); Bilirubin,Total 0.3 mg/dL (0.3-1.0); Blood Urea Nitrogen 13 mg/dL (8-23); Calcium 9.2 mg/dL (8.6-10.3); Carbon Dioxide 29 mEq/L (23-29); Chloride 102 mEq/L (98-107); Chol/HDL Ratio 4.6 (0-4.9); Cholesterol 142 mg/dL (< 200); Globulin 3.8 g/dL (2.4-3.5); Glucose 115 mg/dL (70-105); HDL Cholesterol 31 mg/dL (40-59); LDL Cholesterol,Calculated 83 mg/dL (< 100); Osmolality,Calculated 285 (280-300); Sodium 137 mEq/L (136-145); Total Protein 7.3 g/dL (6.4-8.9); Triglycerides 141 mg/dL (< 150); Troponin I < 0.03 ng/mL (< 0.04); eGFR For African Americans > 60 (> 60); eGFR For Non-African Americans > 60 (> 60)
[2021-02-03] MEDS ORDERED: Aspirin 81 MG TAB.CHEW PO SCH (09:00)
[2021-02-03 11:33] LABS: Estimated Average Glucose 240 mg/dl
[2021-02-03] MEDS ORDERED: NON-FORMULARY MEDICATION 1 EACH EACH (Atorvastatin Calcium [Lipitor] 80 MG Tablet) PO SCH (18:00)
[2021-02-03] MEDS ORDERED: Isovue-370 500 ML BOTTLE IVP ONE (18:11)
[2021-02-03] MEDS ORDERED: Insulin DETEMIR 100 UNIT/ML X5UNITS SUBQ SCH (21:00)
[2021-02-04] MEDS: Aspirin 325 MG TABLET PO SCH ×2 (00:15→09:20)
[2021-02-04] MEDS: Insulin LISPRO 300 UNITS/3 ML VIAL SUBQ SCH ×2 (01:12→09:24)
[2021-02-04 11:37] VITALS: BP 130/75; PULSE 58; TEMP 98.5; O2SAT 92
== END 2021-02-04 12:31 | disposition home or self-care (01) ==
LOC: 3NENU 17:28 → EMEROOARM 17:28 → SUATTDRO 19:12 → 3NENU 20:44
PROVIDERS: ADMIT Pharmacist; ATTEND Internal Medicine